=== PATIENT | male | born 1975 | race Hispanic/Latino ===

== ENCOUNTER 2019-08-06 06:02 | Emergency (ER) | payer SELFPAY | END 2019-08-06 06:20 | disposition home or self-care (01) | LOC: ERS 06:02 | DX: B02.9 Zoster without complications (principal) | CPT/HCPCS: 99282 ==

== ENCOUNTER 2022-09-06 03:05 | Emergency (ER) | payer SELFPAY ==
[2022-09-06] MEDS ORDERED: Bicillin LA 1.2 MILLION UNITS/2 ML SYRINGE ONE (03:49)
[2022-09-06] MEDS ORDERED: Dexamethasone 10 MG/ML VIAL ONE (03:49)
== END 2022-09-06 04:00 | disposition home or self-care (01) ==
LOC: ERS 03:05
DX: J02.9 Acute pharyngitis, unspecified (principal)
CPT/HCPCS: 96372; 99282; J0561; J1100